=== PATIENT | female | born 1935 | race Asian ===

== ENCOUNTER → 2017-04-17 | Outpatient (CLI) | payer MEDICARE, OTHER ==
[~2017-04-17] MED LIST: METF500T4 PO; SIMV-259 PO; TELM20 PO
== END | disposition home or self-care (01) ==
LOC: RADPV 13:38
PROVIDERS: ATTEND Internal Medicine
DX: J98.11 Atelectasis (principal); I70.0 Atherosclerosis of aorta; L92.9 Granulomatous disorder of the skin and subcutaneous tissue, unspecified; M47.814 Spondylosis without myelopathy or radiculopathy, thoracic region
CPT/HCPCS: 71020

== ENCOUNTER → 2017-05-30 | Outpatient (CLI) | payer MEDICARE, OTHER | END | disposition home or self-care (01) | LOC: RADMN 10:51 | PROVIDERS: ATTEND Internal Medicine | DX: M19.071 Primary osteoarthritis, right ankle and foot (principal); M25.871 Other specified joint disorders, right ankle and foot; M65.871 Other synovitis and tenosynovitis, right ankle and foot; Z87.828 Personal history of other (healed) physical injury and trauma | CPT/HCPCS: 73721 ==

== ENCOUNTER → 2017-08-28 | Outpatient (CLI) | payer MEDICARE, OTHER | END | disposition home or self-care (01) | LOC: RADPV 10:39 | PROVIDERS: ATTEND Orthopaedic Surgery | DX: M17.12 Unilateral primary osteoarthritis, left knee (principal); M11.262 Other chondrocalcinosis, left knee ==

== ENCOUNTER → 2017-12-31 | Outpatient (CLI) | payer MEDICARE, OTHER | END | disposition home or self-care (01) | LOC: RADPV 10:46 | PROVIDERS: ATTEND Internal Medicine | DX: J84.10 Pulmonary fibrosis, unspecified (principal); R91.8 Other nonspecific abnormal finding of lung field; I70.0 Atherosclerosis of aorta | CPT/HCPCS: 71046 ==

== ENCOUNTER 2018-01-18 20:16 | Emergency (ER) | payer MEDICARE, OTHER ==
[~2018-01-18] VITALS: Ht 167.6 cm; Wt 68.2 kg
[2018-01-18 20:43] LABS: GLUCOSE,POINT OF CARE 121 MG/DL (70-110)
[2018-01-18] MEDS ORDERED: KETOROLAC TROMETHAMINE 30 MG/ML VIAL IM ONE (21:00)
[2018-01-18 21:41] LABS: APPEARANCE,URINE CLEAR (CLEAR); BILIRUBIN,URINE NEGATIVE (NEGATIVE); GLUCOSE, URINE (UA) NEGATIVE (NEGATIVE); KETONES,URINE NEGATIVE (NEGATIVE); LEUKOCYTE ESTERASE ,URINE TRACE (NEGATIVE); NITRATE,URINE NEGATIVE (NEGATIVE); OCCULT BLOOD,URINE TRACE (NEGATIVE); PH,URINE 6.5 (5.0-8.0); PROTEIN,URINE NEGATIVE (NEGATIVE); UROBILINOGEN,URINE 0.2 mg/dL (<=1.0)
[2018-01-18 21:42] LABS: BASOPHILS % (AUTO) 0.6 % (0.0-2.0); EOSINOPHILS % (AUTO) 1.6 % (1.0-6.0); HEMATOCRIT 37.6 % (36-46); HEMOGLOBIN 13.1 g/dL (12.0-16.0); LYMPHOCYTES % (AUTO) 26.2 % (22.0-44.0); MEAN CORPUSCULAR HEMOGLOBIN 32.9 pg (26.0-34.0); MEAN CORPUSCULAR HGB CONC 34.8 G/dL (31.0-37.0); MEAN CORPUSCULAR VOLUME 95 fL (80-100); MONOCYTES # (AUTO) 0.7 K/uL (0.1-1.0); NEUTROPHILS # (AUTO) 4.7 K/uL (1.8-7.7); NEUTROPHILS % (AUTO) 62.6 % (40.0-70.0); PLATELET COUNT (AUTO) 257 K/uL (150-450); RED BLOOD CELL COUNT(AUTO) 3.97 MIL/uL (4.00-5.20); RED CELL DISTRIBUTION WIDTH 12.7 % (11.5-14.5)
[2018-01-18 21:58] LABS: ANION GAP 8 mmol/L (8-16); CALCIUM, TOTAL 8.9 mg/dL (8.8-10.5); CARBON DIOXIDE 29 mmol/L (22-29); CHLORIDE 101 mmol/L (98-107); CREATININE 0.78 mg/dL (0.60-1.30); GLOMERULAR FILTR. RATE CALC > 60 mL/min (>60); GLUCOSE,RANDOM 102 mg/dL (70-110); POTASSIUM 4.1 mmol/L (3.5-5.1); SODIUM SERUM 138 mmol/L (136-145); UREA NITROGEN, BLOOD 14 mg/dL (7-18)
[2018-01-18 22:06] LABS: ALANINE AMINOTRANSFERASE 29 U/L (12-78); ALBUMIN 3.3 g/dL (3.4-5.0); ALKALINE PHOSPHATASE 61 U/L (46-116); ASPARTATE AMINOTRANSFERASE 15 U/L (15-37); BILIRUBIN,TOTAL 0.5 mg/dL (0.1-1.0); LIPASE 119 U/L (73-393); TOTAL PROTEIN, SERUM 7.1 g/dL (6.4-8.2)
[2018-01-18 22:09] LABS: RBC,URINE 0-2 /HPF (0-2)
[2018-01-18 22:10] LABS: WBC,URINE 0-2 /HPF (0-5)
[2018-01-18 22:11] LABS: BACTERIA,URINE None Seen /HPF (None Seen); SQUAMOUS EPITHELIAL CELL,UR Rare /LPF (None Seen)
[2018-01-19 00:05] VITALS: BP 128/65
== END 2018-01-19 00:10 | disposition home or self-care (01) ==
LOC: EMS 20:17
DX: K80.50 Calculus of bile duct without cholangitis or cholecystitis without obstruction (principal); E11.9 Type 2 diabetes mellitus without complications; I10 Essential (primary) hypertension; E78.00 Pure hypercholesterolemia, unspecified; Z88.0 Allergy status to penicillin
CPT/HCPCS: 36415; 80053; 81001; 82962; 83690; 85025; 96372; 99284; J1885

== ENCOUNTER → 2018-01-21 | Outpatient (CLI) | payer MEDICARE, OTHER ==
[~2018-01-21] MED LIST changes: +IOVERSOL 350 MG/ML 150 ML VIAL ONE; +SODIUM CHLORIDE 0.9% 1,000 ML IV ONE
== END | disposition home or self-care (01) ==
LOC: RADMN 09:40
PROVIDERS: ATTEND Internal Medicine
DX: R10.9 Unspecified abdominal pain (principal); K44.9 Diaphragmatic hernia without obstruction or gangrene; Z90.710 Acquired absence of both cervix and uterus
CPT/HCPCS: 74177; J7030; Q9967

== ENCOUNTER → 2018-12-21 | Outpatient (CLI) | payer MEDICARE, OTHER ==
[~2018-12-21] MED LIST changes: +AMLO-511 PO; +ATEN1TAB3 PO; +ATOR10TA84 PO; -IOVERSOL 350 MG/ML 150 ML VIAL ONE; +METF-444 PO; -METF500T4 PO; -SODIUM CHLORIDE 0.9% 1,000 ML IV ONE; +TAMO10 PO; +TRIA1TAB91 PO
== END | disposition home or self-care (01) ==
LOC: RADPV 13:48
PROVIDERS: ATTEND Internal Medicine
DX: R91.8 Other nonspecific abnormal finding of lung field (principal); R05 Cough

== ENCOUNTER 2018-12-24 11:45 | Emergency (ER) | payer MEDICARE, OTHER ==
[~2018-12-24] VITALS: Ht 157.5 cm; Wt 81.8 kg
[~2018-12-24 11:45] MED LIST changes: -AMLO-511 PO; -ATEN1TAB3 PO; -ATOR10TA84 PO; -TAMO10 PO; -TRIA1TAB91 PO
[2018-12-24] MEDS ORDERED: ATEN1TAB3 PO (12:14)
[2018-12-24] MEDS ORDERED: AMLO-511 PO (12:14)
[2018-12-24] MEDS ORDERED: TRIA1TAB91 PO (12:14)
[2018-12-24] MEDS ORDERED: TAMO10 PO (12:14)
[2018-12-24] MEDS ORDERED: ATOR10TA84 PO (12:14)
[2018-12-24 12:18] LABS: GLUCOSE,POINT OF CARE 134 MG/DL (70-110)
[2018-12-24 17:11] VITALS: BP 121/51
== END 2018-12-24 17:22 | disposition home or self-care (01) ==
LOC: EMS 11:46
DX: S00.03XA Contusion of scalp, initial encounter (principal); E11.9 Type 2 diabetes mellitus without complications; E78.00 Pure hypercholesterolemia, unspecified; I10 Essential (primary) hypertension; Z90.49 Acquired absence of other specified parts of digestive tract; Z88.0 Allergy status to penicillin; Z90.89 Acquired absence of other organs; W19.XXXA Unspecified fall, initial encounter; Y93.89 Activity, other specified; Y92.512 Supermarket, store or market as the place of occurrence of the external cause; Y99.8 Other external cause status
CPT/HCPCS: 70450

== ENCOUNTER → 2019-02-10 | Outpatient (CLI) | payer MEDICARE, OTHER ==
[~2019-02-10] MED LIST changes: +ATOR10TA84 PO; +GADOBUTROL 1 MMOL/ML 10 ML VIAL IVP ONE; -SIMV-259 PO; +TAMO10 PO
== END | disposition home or self-care (01) ==
LOC: RADMN 10:14
PROVIDERS: ATTEND Internal Medicine
DX: I67.82 Cerebral ischemia (principal)
CPT/HCPCS: 70553; A9585

== ENCOUNTER → 2019-05-12 | Outpatient (CLI) | payer MEDICARE, OTHER ==
[~2019-05-12] MED LIST changes: -GADOBUTROL 1 MMOL/ML 10 ML VIAL IVP ONE
== END | disposition home or self-care (01) ==
LOC: RADPV 10:25
PROVIDERS: ATTEND Internal Medicine
DX: R60.0 Localized edema (principal)
CPT/HCPCS: 93970

== ENCOUNTER → 2022-01-07 | Outpatient (CLI) | payer MEDICARE, OTHER ==
[~2022-01-07] MED LIST changes: +IOHEXOL 350 MG/ML 75 ML VIAL ONE
== END | disposition home or self-care (01) ==
LOC: RADMN 08:20
PROVIDERS: ATTEND Internal Medicine
DX: I77.819 Aortic ectasia, unspecified site (principal); I25.10 Atherosclerotic heart disease of native coronary artery without angina pectoris; K44.9 Diaphragmatic hernia without obstruction or gangrene; N63.20 Unspecified lump in the left breast, unspecified quadrant; M40.294 Other kyphosis, thoracic region; M19.012 Primary osteoarthritis, left shoulder; M19.011 Primary osteoarthritis, right shoulder; J84.10 Pulmonary fibrosis, unspecified; R07.89 Other chest pain
CPT/HCPCS: 71046; 71260; Q9967

== ENCOUNTER 2022-02-19 00:25 | Emergency (ER) | payer MEDICARE, OTHER ==
[~2022-02-19] VITALS: Ht 157.5 cm; Wt 75.0 kg
[~2022-02-19 00:25] MED LIST changes: -IOHEXOL 350 MG/ML 75 ML VIAL ONE
[2022-02-19] MEDS ORDERED: CHOL25TA4 PO (00:50)
[2022-02-19] MEDS ORDERED: DENO60DI SQ (00:50)
[2022-02-19] MEDS ORDERED: CLOP75TA60 PO (00:50)
[2022-02-19] MEDS ORDERED: ASPI-1450 PO (00:50)
[2022-02-19] MEDS ORDERED: ATOR-2 PO (00:50)
[2022-02-19] MEDS ORDERED: MULT-660 PO (00:50)
[2022-02-19 04:03] VITALS: BP 137/99
[2022-02-19] MEDS ORDERED: MAGNESIUM CITRATE 300 ML ORAL SOLUTION PO ONE (04:15)
== END 2022-02-19 04:37 | disposition home or self-care (01) ==
LOC: EMS 00:27
DX: K59.00 Constipation, unspecified (principal); E11.9 Type 2 diabetes mellitus without complications; E78.00 Pure hypercholesterolemia, unspecified; I10 Essential (primary) hypertension; Z88.0 Allergy status to penicillin; Z79.82 Long term (current) use of aspirin; Z90.710 Acquired absence of both cervix and uterus
CPT/HCPCS: 93005; 99283

== ENCOUNTER → 2022-04-25 | Outpatient (CLI) | payer MEDICARE, OTHER ==
[~2022-04-25] MED LIST changes: +ASPI-1450 PO; +ATOR-2 PO; -ATOR10TA84 PO; +CHOL25TA4 PO; +CLOP75TA60 PO; +DENO60DI SQ; +MULT-660 PO
== END | disposition home or self-care (01) ==
LOC: RADPV 13:16
PROVIDERS: ATTEND Internal Medicine
DX: M85.88 Other specified disorders of bone density and structure, other site (principal); M81.0 Age-related osteoporosis without current pathological fracture
CPT/HCPCS: 77080

== ENCOUNTER 2022-07-29 10:07 | Emergency (ER) | payer MEDICARE, OTHER ==
[~2022-07-29] VITALS: Ht 167.6 cm; Wt 70.9 kg
[~2022-07-29 10:07] MED LIST changes: -TAMO10 PO; +TAMO10TA45 PO
[2022-07-29 11:11] LABS: GLUCOMETER DEV NAME(LOC) ERT.5; GLUCOSE,POINT OF CARE 96 MG/DL (70-110)
[2022-07-29] MEDS ORDERED: SODIUM CHLORIDE 0.9% 500 ML IV ONE (12:00)
[2022-07-29 12:10] LABS: APPEARANCE,URINE CLEAR (CLEAR); BILIRUBIN,URINE NEGATIVE (NEGATIVE); GLUCOSE, URINE (UA) NEGATIVE (NEGATIVE); KETONES,URINE NEGATIVE (NEGATIVE); LEUKOCYTE ESTERASE ,URINE NEGATIVE (NEGATIVE); NITRATE,URINE NEGATIVE (NEGATIVE); OCCULT BLOOD,URINE NEGATIVE (NEGATIVE); PH,URINE 7.5 (5.0-8.0); PROTEIN,URINE NEGATIVE (NEGATIVE); SPECIFIC GRAVITIY, URINE 1.011 (1.003-1.030); UROBILINOGEN,URINE <=1.0 mg/dL (<=1.0)
[2022-07-29 12:35] LABS: BASOPHILS % (AUTO) 0.8 % (0.0-2.0); EOSINOPHILS % (AUTO) 0.9 % (1.0-6.0); HEMATOCRIT 38.3 % (36-46); HEMOGLOBIN 12.6 g/dL (12.0-16.0); LYMPHOCYTES # (AUTO) 1.3 K/uL (1.0-4.8); MEAN CORPUSCULAR HEMOGLOBIN 32.1 pg (26.0-34.0); MEAN CORPUSCULAR HGB CONC 32.8 G/dL (31.0-37.0); MEAN CORPUSCULAR VOLUME 98 fL (80-100); MONOCYTES # (AUTO) 0.5 K/uL (0.1-1.0); NEUTROPHILS % (AUTO) 72.3 % (40.0-70.0); PLATELET COUNT (AUTO) 233 K/uL (150-450); RED BLOOD CELL COUNT(AUTO) 3.92 MIL/uL (4.00-5.20); RED CELL DISTRIBUTION WIDTH 13.1 % (11.5-14.5)
[2022-07-29 12:41] LABS: ANION GAP 4 mmol/L (8-16); CALCIUM, TOTAL 8.6 mg/dL (8.8-10.5); CARBON DIOXIDE 28 mmol/L (22-29); CHLORIDE 97 mmol/L (98-107); CREATININE 0.59 mg/dL (0.60-1.30); GLUCOSE,RANDOM 95 mg/dL (70-110); POTASSIUM 4.8 mmol/L (3.5-5.1); SODIUM SERUM 129 mmol/L (136-145); UREA NITROGEN, BLOOD 11 mg/dL (7-18)
[2022-07-29 12:45] LABS: GLOMERULAR FILTR. RATE CALC > 60 mL/min (>60)
[2022-07-29 12:47] LABS: ALANINE AMINOTRANSFERASE 23 U/L (12-78); ALBUMIN 3.2 g/dL (3.4-5.0); ALKALINE PHOSPHATASE 30 U/L (46-116); ASPARTATE AMINOTRANSFERASE 22 U/L (15-37); BILIRUBIN,TOTAL 0.5 mg/dL (0.1-1.0); TOTAL PROTEIN, SERUM 6.6 g/dL (6.4-8.2)
[2022-07-29] MEDS ORDERED: CARV3 PO (13:09)
[2022-07-29] MEDS ORDERED: TOLT2CAP PO (13:09)
[2022-07-29] MEDS ORDERED: METF-81 PO (13:18)
[2022-07-29] MEDS ORDERED: CALC-1271 PO (13:18)
[2022-07-29 15:03] VITALS: BP 157/81
== END 2022-07-29 15:43 | disposition home or self-care (01) ==
LOC: EMS 10:07
DX: E87.1 Hypo-osmolality and hyponatremia (principal); E11.9 Type 2 diabetes mellitus without complications; E78.00 Pure hypercholesterolemia, unspecified; I10 Essential (primary) hypertension; K80.80 Other cholelithiasis without obstruction; Z90.710 Acquired absence of both cervix and uterus; Z96.659 Presence of unspecified artificial knee joint; Z98.890 Other specified postprocedural states; Z88.0 Allergy status to penicillin
CPT/HCPCS: 99283; 80053; 81003; 82962; 85025; 36415; J7040

== ENCOUNTER → 2022-11-06 | Outpatient (CLI) | payer MEDICARE, OTHER ==
[~2022-11-06] MED LIST changes: +CALC-1271 PO; +CARV3 PO; -METF-444 PO; +METF-81 PO; +TOLT2CAP PO
== END | disposition home or self-care (01) ==
LOC: RADMN 12:09
PROVIDERS: ATTEND Internal Medicine
DX: J44.9 Chronic obstructive pulmonary disease, unspecified (principal); J84.10 Pulmonary fibrosis, unspecified; M47.814 Spondylosis without myelopathy or radiculopathy, thoracic region; M85.88 Other specified disorders of bone density and structure, other site; M25.78 Osteophyte, vertebrae; R05.9 Cough, unspecified
CPT/HCPCS: 71046

== ENCOUNTER 2022-11-09 12:01 | Inpatient (IN) | payer MEDICARE, OTHER ==
[~2022-11-09] VITALS: Ht 160 cm; Wt 73.1 kg
[2022-11-09] MEDS ORDERED: BACITRACIN 0.9 GM PACKET OINTMENT TP ONE (12:30)
[2022-11-09 13:41] LABS: COVID AG,FIA SOURCE NASOPHARYNGEAL
[2022-11-09 13:52] LABS: EOSINOPHILS % (AUTO) 1.3 % (1.0-6.0); HEMATOCRIT 36.1 % (36-46); LYMPHOCYTES # (AUTO) 1.2 K/uL (1.0-4.8); LYMPHOCYTES % (AUTO) 15.6 % (22.0-44.0); MEAN CORPUSCULAR HEMOGLOBIN 32.8 pg (26.0-34.0); MEAN CORPUSCULAR HGB CONC 33.1 G/dL (31.0-37.0); MEAN CORPUSCULAR VOLUME 99 fL (80-100); MONOCYTES # (AUTO) 0.5 K/uL (0.1-1.0); MONOCYTES % (AUTO) 6.5 % (2.0-9.0); NEUTROPHILS # (AUTO) 5.7 K/uL (1.8-7.7); NEUTROPHILS % (AUTO) 75.6 % (40.0-70.0); PLATELET COUNT (AUTO) 230 K/uL (150-450); RED BLOOD CELL COUNT(AUTO) 3.64 MIL/uL (4.00-5.20); RED CELL DISTRIBUTION WIDTH 13.5 % (11.5-14.5)
[2022-11-09] MEDS ORDERED: INSULIN LISPRO 100 UNITS/ML SQ PRN (14:00)
[2022-11-09] MEDS ORDERED: DEXTROSE 50%-WATER 25 GM/50 ML SYRINGE IVP PRN (14:00)
[2022-11-09 14:02] LABS: CALCIUM, TOTAL 8.8 mg/dL (8.8-10.5); CREATININE 0.94 mg/dL (0.60-1.30); POTASSIUM 4.2 mmol/L (3.5-5.1)
[2022-11-09 14:07] LABS: PROTHROMBIN TIME 10.9 SEC (9.4-11.6)
[2022-11-09 14:08] LABS: ALBUMIN 3.2 g/dL (3.4-5.0); BILIRUBIN,TOTAL 0.4 mg/dL (0.1-1.0); TOTAL PROTEIN, SERUM 6.7 g/dL (6.4-8.2)
[2022-11-09] MEDS ORDERED: AMLO2.5T29 PO (14:10)
[2022-11-09] MEDS ORDERED: TELM40 PO (14:10)
[2022-11-09] MEDS ORDERED: MIRT-92 PO (14:10)
[2022-11-09] MEDS ORDERED: ONDANSETRON HCL 4 MG/2 ML VIAL IVP PRN (14:15)
[2022-11-09] MEDS ORDERED: ENALAPRILAT DIHYDRATE 1.25 MG/ML VIAL IVP PRN (14:15)
[2022-11-09] MEDS ORDERED: IPRATROPIUM BROMIDE 0.5 MG/2.5 ML NEB SOLUTION NEB PRN (14:15)
[2022-11-09] MEDS ORDERED: 0.9% SODIUM CHLORIDE 10 ML SYRINGE IVP PRN (14:15)
[2022-11-09] MEDS ORDERED: ALBUTEROL SULFATE 2.5 MG/0.5 ML NEB SOLUTION NEB PRN (14:15)
[2022-11-09] MEDS ORDERED: BISACODYL 10 MG RECTAL RECTAL SUPPOSITORY PR PRN (14:15)
[2022-11-09 14:46] LABS: APPEARANCE,URINE CLEAR (CLEAR); BILIRUBIN,URINE NEGATIVE (NEGATIVE); GLUCOSE, URINE (UA) NEGATIVE (NEGATIVE); KETONES,URINE NEGATIVE (NEGATIVE); LEUKOCYTE ESTERASE ,URINE NEGATIVE (NEGATIVE); NITRATE,URINE NEGATIVE (NEGATIVE); OCCULT BLOOD,URINE TRACE (NEGATIVE); PROTEIN,URINE NEGATIVE (NEGATIVE); UROBILINOGEN,URINE <=1.0 mg/dL (<=1.0)
[2022-11-09 14:51] LABS: BACTERIA,URINE None Seen /HPF (None Seen); RBC,URINE 0-2 /HPF (0-2); SQUAMOUS EPITHELIAL CELL,UR Few /LPF (None Seen); WBC,URINE None Seen /HPF (0-5)
[2022-11-09] MEDS: TELMISARTAN 40 MG TABLET PO SCH (21:20)
[2022-11-09] MEDS: CARVEDILOL 3.125 MG TABLET PO SCH (21:20)
[2022-11-10] VITALS: BP 135/55
[2022-11-10 00:41] LABS: GLUCOSE,POINT OF CARE 107 MG/DL (70-110)
[2022-11-10 04:00] VITALS: BP 144/86
[2022-11-10 05:41] LABS: BASOPHILS % (AUTO) 0.8 % (0.0-2.0); EOSINOPHILS % (AUTO) 1.1 % (1.0-6.0); HEMATOCRIT 36.2 % (36-46); HEMOGLOBIN 11.8 g/dL (12.0-16.0); LYMPHOCYTES # (AUTO) 1.5 K/uL (1.0-4.8); LYMPHOCYTES % (AUTO) 19.9 % (22.0-44.0); MEAN CORPUSCULAR HEMOGLOBIN 32.2 pg (26.0-34.0); MEAN CORPUSCULAR HGB CONC 32.5 G/dL (31.0-37.0); MEAN CORPUSCULAR VOLUME 99 fL (80-100); MONOCYTES # (AUTO) 0.7 K/uL (0.1-1.0); MONOCYTES % (AUTO) 8.7 % (2.0-9.0); NEUTROPHILS # (AUTO) 5.3 K/uL (1.8-7.7); NEUTROPHILS % (AUTO) 69.5 % (40.0-70.0); PLATELET COUNT (AUTO) 219 K/uL (150-450); RED BLOOD CELL COUNT(AUTO) 3.66 MIL/uL (4.00-5.20); RED CELL DISTRIBUTION WIDTH 13.6 % (11.5-14.5)
[2022-11-10 05:56] LABS: ALANINE AMINOTRANSFERASE 17 U/L (12-78); ALKALINE PHOSPHATASE 34 U/L (46-116); ANION GAP 7 mmol/L (8-16); ASPARTATE AMINOTRANSFERASE 14 U/L (15-37); BILIRUBIN,TOTAL 0.7 mg/dL (0.1-1.0); CALCIUM, TOTAL 8.8 mg/dL (8.8-10.5); CARBON DIOXIDE 29 mmol/L (22-29); CHLORIDE 101 mmol/L (98-107); CREATININE 0.75 mg/dL (0.60-1.30); GLUCOSE,RANDOM 92 mg/dL (70-110); SODIUM SERUM 137 mmol/L (136-145); TOTAL PROTEIN, SERUM 6.2 g/dL (6.4-8.2); UREA NITROGEN, BLOOD 11 mg/dL (7-18)
[2022-11-10 05:58] LABS: GLOMERULAR FILTR. RATE CALC > 60 mL/min (>60)
[2022-11-10] MEDS: TAMOXIFEN CITRATE 10 MG TABLET PO SCH (07:47)
[2022-11-10] MEDS: MULTIVITAMINS, THERAPEUTIC TABLET PO SCH (07:47)
[2022-11-10] MEDS: CHOLECALCIFEROL (VIT D3) 1,000 UNITS [25 MCG] TABLET PO SCH (07:48)
[2022-11-10] MEDS: CARVEDILOL 3.125 MG TABLET PO SCH ×2 (07:48→20:41)
[2022-11-10] MEDS: ATORVASTATIN CALCIUM 40 MG TABLET PO SCH (07:48)
[2022-11-10] MEDS: PANTOPRAZOLE SODIUM 40 MG DR TABLET PO SCH (07:50)
[2022-11-10] MEDS: CALCIUM OYSTER SHELL 250 MG-VIT D3 125 UNITS[3.125MCG] TABLET PO SCH (07:50)
[2022-11-10] MEDS: TOLTERODINE TARTRATE 2 MG ER CAPSULE PO SCH (07:50)
[2022-11-10 08:00] VITALS: BP 149/90
[2022-11-10 08:27] LABS: GLUCOSE,POINT OF CARE 79 MG/DL (70-110)
[2022-11-10 12:00] VITALS: BP 150/68
[2022-11-10 16:00] VITALS: BP 112/71
[2022-11-10 17:16] LABS: GLUCOSE,POINT OF CARE 87 MG/DL (70-110)
[2022-11-10 20:00] VITALS: BP 162/97
[2022-11-10 20:06] LABS: GLUCOSE,POINT OF CARE 102 MG/DL (70-110)
[2022-11-10] MEDS: ACETAMINOPHEN 325 MG TABLET PO PRN (20:40)
[2022-11-10] MEDS: DOCUSATE SODIUM 100 MG CAPSULE PO PRN (20:41)
[2022-11-10] MEDS: TELMISARTAN 40 MG TABLET PO SCH (20:41)
[2022-11-11] VITALS: BP 110/59
[2022-11-11 04:00] VITALS: BP 97/49
[2022-11-11 06:19] VITALS: BP 139/79
[2022-11-11 06:26] LABS: GLUCOSE,POINT OF CARE 106 MG/DL (70-110)
[2022-11-11 06:26] LABS: GLUCOSE,POINT OF CARE 108 MG/DL (70-110)
[2022-11-11 07:37] LABS: GLUCOMETER DEV NAME(LOC) 5N.1C; GLUCOSE,POINT OF CARE 97 MG/DL (70-110)
[2022-11-11 07:46] VITALS: BP 150/75
[2022-11-11] MEDS: TAMOXIFEN CITRATE 10 MG TABLET PO SCH (09:45)
[2022-11-11] MEDS: CALCIUM OYSTER SHELL 250 MG-VIT D3 125 UNITS[3.125MCG] TABLET PO SCH (09:47)
[2022-11-11] MEDS: MULTIVITAMINS, THERAPEUTIC TABLET PO SCH (09:47)
[2022-11-11] MEDS: ATORVASTATIN CALCIUM 40 MG TABLET PO SCH (09:48)
[2022-11-11] MEDS: PANTOPRAZOLE SODIUM 40 MG DR TABLET PO SCH (09:49)
[2022-11-11] MEDS: TOLTERODINE TARTRATE 2 MG ER CAPSULE PO SCH (09:49)
[2022-11-11] MEDS: CARVEDILOL 3.125 MG TABLET PO SCH (09:49)
[2022-11-11] MEDS: DOCUSATE SODIUM 100 MG CAPSULE PO PRN (09:50)
[2022-11-11] MEDS: CHOLECALCIFEROL (VIT D3) 1,000 UNITS [25 MCG] TABLET PO SCH (09:52)
[2022-11-11] MEDS: ACETAMINOPHEN 325 MG TABLET PO PRN (10:59)
[2022-11-11 11:32] VITALS: BP 147/78
[2022-11-11 15:39] VITALS: BP 117/62
[2023-05-08] MEDS ORDERED: DENOSUMAB 60 MG/ML SYRINGE SQ SCH (09:00)
== END 2022-11-11 19:00 | disposition home health service (06) | DRG 87 ==
LOC: EMS 12:06 → ICU 15:23 → 5S 11-11 05:45
PROVIDERS: ADMIT Internal Medicine; ATTEND Internal Medicine
DX: S06.5X0A Traumatic subdural hemorrhage without loss of consciousness, initial encounter (principal); S00.03XA Contusion of scalp, initial encounter; E11.9 Type 2 diabetes mellitus without complications; Z20.822 Contact with and (suspected) exposure to COVID-19; Z79.899 Other long term (current) drug therapy; I11.9 Hypertensive heart disease without heart failure; I25.10 Atherosclerotic heart disease of native coronary artery without angina pectoris; Z96.659 Presence of unspecified artificial knee joint; W01.0XXA Fall on same level from slipping, tripping and stumbling without subsequent striking against object, initial encounter; K59.00 Constipation, unspecified; Z79.82 Long term (current) use of aspirin; Z88.0 Allergy status to penicillin; Z90.710 Acquired absence of both cervix and uterus; Y93.89 Activity, other specified; Y92.89 Other specified places as the place of occurrence of the external cause; Y99.8 Other external cause status; E78.5 Hyperlipidemia, unspecified
CPT/HCPCS: 70450; 72125; 80053; 81001; 82962; 85025; 85610; 85730; 86850; 86900; 86901; 87081; 93005; 97116; 97162; 97530; 99291; G0378; J3490

== ENCOUNTER → 2024-03-10 | Outpatient (CLI) | payer MEDICARE, OTHER ==
[~2024-03-10] MED LIST changes: +AMLO2.5T29 PO; -ASPI-1450 PO; -CLOP75TA60 PO; +MIRT-92 PO; -TELM20 PO; +TELM40 PO
== END | disposition home or self-care (01) ==
LOC: RADPV 08:30
PROVIDERS: ATTEND Internal Medicine
DX: R10.2 Pelvic and perineal pain (principal)
CPT/HCPCS: 76830; 76856

== ENCOUNTER 2024-04-12 11:20 | Emergency (ER) | payer MEDICARE, OTHER ==
[~2024-04-12] VITALS: Ht 149.9 cm; Wt 59.1 kg
[2024-04-12 11:25] VITALS: TEMP 98
[2024-04-12 13:57] LABS: BASOPHILS % (AUTO) 1.1 % (0.0-2.0); EOSINOPHILS % (AUTO) 3.7 % (1.0-6.0); HEMATOCRIT 34.6 % (36-46); HEMOGLOBIN 11.6 g/dL (12.0-16.0); LYMPHOCYTES # (AUTO) 1.2 K/uL (1.0-4.8); LYMPHOCYTES % (AUTO) 17.2 % (22.0-44.0); MEAN CORPUSCULAR HEMOGLOBIN 32.9 pg (26.0-34.0); MEAN CORPUSCULAR HGB CONC 33.6 G/dL (31.0-37.0); MEAN CORPUSCULAR VOLUME 98 fL (80-100); MONOCYTES # (AUTO) 0.5 K/uL (0.1-1.0); MONOCYTES % (AUTO) 7.7 % (2.0-9.0); NEUTROPHILS # (AUTO) 4.7 K/uL (1.8-7.7); NEUTROPHILS % (AUTO) 70.3 % (40.0-70.0); PLATELET COUNT (AUTO) 274 K/uL (150-450); RED BLOOD CELL COUNT(AUTO) 3.54 MIL/uL (4.00-5.20); WHITE BLOOD COUNT (AUTO) 6.7 K/uL (4.5-11.0)
[2024-04-12 14:06] LABS: APPEARANCE,URINE CLEAR (CLEAR); BILIRUBIN,URINE NEGATIVE (NEGATIVE); COLOR,URINE COLORLESS (YELLOW); GLUCOSE, URINE (UA) NEGATIVE (NEGATIVE); KETONES,URINE NEGATIVE (NEGATIVE); LEUKOCYTE ESTERASE ,URINE NEGATIVE (NEGATIVE); NITRATE,URINE NEGATIVE (NEGATIVE); OCCULT BLOOD,URINE NEGATIVE (NEGATIVE); PH,URINE 7.5 (5.0-8.0); PROTEIN,URINE NEGATIVE (NEGATIVE); SPECIFIC GRAVITIY, URINE 1.009 (1.003-1.030); UROBILINOGEN,URINE <=1.0 mg/dL (<=1.0)
[2024-04-12 14:06] LABS: ANION GAP 4 mmol/L (8-16); CALCIUM, TOTAL 8.7 mg/dL (8.8-10.5); CARBON DIOXIDE 28 mmol/L (22-29); CHLORIDE 97 mmol/L (98-107); CREATININE 0.82 mg/dL (0.60-1.30); GLOMERULAR FILTR. RATE CALC > 60 mL/min (>60); GLUCOSE,RANDOM 110 mg/dL (70-110); SODIUM SERUM 129 mmol/L (136-145); UREA NITROGEN, BLOOD 11 mg/dL (7-18)
[2024-04-12 14:13] LABS: ALANINE AMINOTRANSFERASE 20 U/L (12-78); ALBUMIN 3.1 g/dL (3.4-5.0); ALKALINE PHOSPHATASE 52 U/L (46-116); ASPARTATE AMINOTRANSFERASE 16 U/L (15-37); BILIRUBIN,TOTAL 0.5 mg/dL (0.1-1.0); CREATINE KINASE, TOTAL ONLY 33 U/L (26-192); TOTAL PROTEIN, SERUM 6.2 g/dL (6.4-8.2)
[2024-04-12 14:14] LABS: TROPONIN I-HIGH SENSITIVITY 7 ng/L (<51)
[2024-04-12 14:22] LABS: B-TYPE NATRIURETIC PEPTIDE 72 pg/mL (0-100)
[2024-04-12] MEDS ORDERED: TRIA15CR49 TP (14:44)
[2024-04-12] MEDS ORDERED: LEVO5TAB13 PO (14:44)
[2024-04-12] MEDS ORDERED: ASPI-1444 PO (14:51)
[2024-04-12] MEDS: FUROSEMIDE 20 MG TABLET PO ONE (15:24)
[2024-04-12 16:00] VITALS: BP 126/70; PULSE 85; RESP 18
[2024-04-12] MEDS ORDERED: FURO20 PO (16:10)
[2024-04-12] MEDS ORDERED: POTA8CAP20 PO (16:10)
== END 2024-04-12 16:34 | disposition home or self-care (01) ==
LOC: EMS 11:20
DX: R60.0 Localized edema (principal); E87.1 Hypo-osmolality and hyponatremia; E11.9 Type 2 diabetes mellitus without complications; I10 Essential (primary) hypertension; Z88.0 Allergy status to penicillin; Z91.118 Patient's noncompliance with dietary regimen for other reason
CPT/HCPCS: 71045; 80053; 81003; 82550; 83880; 84484; 85025; 85610; 85730; 93005; 93970; 99285; 36415-L1; 36415-TC

== ENCOUNTER 2024-08-02 16:42 | Emergency (ER) | payer MEDICARE, OTHER ==
[~2024-08-02] VITALS: Ht 152.4 cm; Wt 59.1 kg
[~2024-08-02 16:42] MED LIST changes: +ASPI-1444 PO; +FURO20TA5 PO; +LEVO5TAB13 PO; +POTA8CAP20 PO; +TRIA15CR49 TP
[2024-08-02] MEDS ORDERED: CARV3.1231 PO (16:51)
[2024-08-02] MEDS ORDERED: TELM80TA10 PO (16:51)
[2024-08-02] MEDS ORDERED: CLOB15OI21 TP (16:51)
[2024-08-02 16:54] VITALS: BP 110/66; PULSE 82; RESP 18; TEMP 98.5; O2SAT 99
[2024-08-02] MEDS: ACETAMINOPHEN 325 MG TABLET PO ONE (19:16)
== END 2024-08-02 20:09 | disposition home or self-care (01) ==
LOC: EMS 16:42
DX: R51.9 Headache, unspecified (principal); M54.2 Cervicalgia; M19.90 Unspecified osteoarthritis, unspecified site; E11.9 Type 2 diabetes mellitus without complications; E78.00 Pure hypercholesterolemia, unspecified; I10 Essential (primary) hypertension; Z90.710 Acquired absence of both cervix and uterus; Z96.659 Presence of unspecified artificial knee joint; Z88.0 Allergy status to penicillin; Z79.82 Long term (current) use of aspirin
CPT/HCPCS: 70450; 72125; 99284